=== PATIENT | female | born 2000 | race Caucasian/White ===

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

== ENCOUNTER 2022-11-28 19:56 | Emergency (ER) | payer OTHER ==
[2022-11-28] MEDS ORDERED: Ketorolac 60 MG/2 ML SDV IM ONE (20:18)
== END 2022-11-28 21:20 | disposition home or self-care (01) ==
LOC: JD.ED 19:56
DX: S43.401A Unspecified sprain of right shoulder joint, initial encounter (principal); S50.812A Abrasion of left forearm, initial encounter; V80.010A Animal-rider injured by fall from or being thrown from horse in noncollision accident, initial encounter
CPT/HCPCS: 71046; 73030; 96372; 99283; J1885